=== PATIENT | male | born 1955 | race Hispanic/Latino ===

== ENCOUNTER → 2021-03-13 | Outpatient (CLI) | payer MEDICARE ==
[~2021-03-13] MED LIST: ALLOPURINOL300 MG PO; CARVEDILOL25 MG PO; CRESTOR10 MG PO; LISINOPRIL40 MG PO; METFORMIN HCL500 MG PO
== END ==
LOC: CARD 10:28
PROVIDERS: ATTEND Nurse Practitioner Adult Health
DX: I73.9 Peripheral vascular disease, unspecified (principal)
CPT/HCPCS: 93925

== ENCOUNTER → 2021-04-11 | Day surgery (SDC) | payer MEDICARE ==
[2021-04-10 11:14] LABS: BASOPHILS % 0.5 % (0.0-1.0); HEMOGLOBIN 13.6 g/dL (14.0-18.0); LYMPHOCYTES # (AUTO) 1.3 (1.0-3.2); LYMPHOCYTES % 18.3 % (18.0-39.1); MEAN CORPUSCULAR HEMOGLOBIN 31.4 pg (28-32); MEAN CORPUSCULAR HGB CONC 33.2 g/dL (31-35); MEAN CORPUSCULAR VOLUME 94.7 fL (81-99); MONOCYTES # (AUTO) 0.9 (0.2-0.8); NEUTROPHILS % 68.9 % (38.7-80.0); PLATELET COUNT 186 x10e3/uL (140-360); RED BLOOD COUNT 4.33 x10e6/uL (4.3-5.7); RED CELL DISTRIBUTION WIDTH 12.9 % (11.7-14.4)
[~2021-04-11] MED LIST changes: +FENTANYL CITRATE/PF 100MCG/2 ML INJ ONE; +LIDOCAINE HCL 2% LOCAL INJ 5 ML SDV VIAL INJ ONE; +MIDAZOLAM HCL 2 MG/2 ML VIAL ONE; +PHENYLEPHRINE HCL 1% 10 MG/ML VIAL ONE; +PROPOFOL IV EMULSION 10 MG/ML 20 ML VIAL ONE
[2021-04-11 13:35] VITALS: BP 101/80
== END | disposition home or self-care (01) ==
LOC: OR 09:03
PROVIDERS: ATTEND Internal Medicine Gastroenterology
DX: Z09 Encounter for follow-up examination after completed treatment for conditions other than malignant neoplasm (principal); K63.5 Polyp of colon; K64.8 Other hemorrhoids; I10 Essential (primary) hypertension; E11.9 Type 2 diabetes mellitus without complications; E78.00 Pure hypercholesterolemia, unspecified; M10.9 Gout, unspecified; Z01.810 Encounter for preprocedural cardiovascular examination; Z01.812 Encounter for preprocedural laboratory examination; Z20.822 Contact with and (suspected) exposure to COVID-19; Z79.84 Long term (current) use of oral hypoglycemic drugs; Z79.899 Other long term (current) drug therapy; Z68.29 Body mass index [BMI] 29.0-29.9, adult
CPT/HCPCS: 36415 ×2; 45380; 45384; 82948; 85025; 93005; J2001; J2250; J2370; J2704; J3010; U0002; 45378